=== PATIENT | male | born 1980 | race Caucasian/White ===

== ENCOUNTER 2019-06-18 12:59 | Emergency (ER) | payer OTHER ==
[~2019-06-18] VITALS: Ht 175.3 cm; Wt 95.3 kg
[2019-06-18] MEDS ORDERED: IOPAMIDOL 370 MG/ML 200 ML INFUS..BTL INJ ONE (13:00)
--- OUTSIDE RECORDS SUMMARY | 2019-06-18 13:03 | XMS REPORT ---
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 Allergies, Adverse Reactions, Alerts Allergy Name Allergy Type Status Severity Reaction(s) Onset Date Inactive Date Treating Clinician Comments No Known Allergies DA Active U 2018-10-25 00:00:00 Medications This patient has no known medications. Results Test Description Test Time Test Comments Text Results Atomic Results Result Comments GASTRIC,BIOPSY 2018-11-03 16:44:00 RUN DATE: 11/03/18 [facility] PAGE 1 RUN TIME: 1644 Specimen Inquiry RUN USER: INTERFACE PATIENT: HANNAH TRAYLOR LOC: [facility] U #: [id number] AGE/SX: 38/M ROOM: RE11/02/18[facility]: Redd Bridges MD : 79 BED: DIS: STATUS: [facility] TLOC: SPEC #: [id number] RECD: 11/02/18 STATUS: AISSATOURoberto JOSEF #: [id number] DHEERAJ: 11/02/18-[address] [facility] [address]: Redd Bridges MD ENTERED: 11/02/18 SP TYPE: GASTRIC BX OT DR: Lila Garner MDORDERED: GROSS COPIES TO: Lila Garner MD [address] [facility] [address] [place], [place] [id number] Redd Bridges MD [address] [address] PROCEDURES: GROSS (11/03/18-1336) TISSUES: 1. ANTRUM - BX 2. BODY BIOPSY OF STOMACH 3. ESOPHAGUS, NOS - BX CLINICAL HISTORY COLLECTION DATE: 11/02/18 [facility] FINAL DIAGNOSIS Gastric antrum, biopsy: GASTRIC MUCOSA WITH NO SIGNIFICANT PATHOLOGIC ALTERATION NEGATIVE FOR HELICOBACTER ORGANISMS Gastric body, biopsy FRAGMENTS OF GASTRIC MUCOSA WITH NO SIGNIFICANT PATHOLOGIC ALTERATION Esophagus, biopsy: TANGENTIALLY SECTIONED SQUAMOUS MUCOSA WITH MILDLY INCREASED INTRAEPITHELIAL LYMPHOCYTES NO INCREASED NUMBER OF INTRAEPITHELIAL EOSINOPHILS NO GLANDULAR EPITHELIUM PRESENT NEGATIVE FOR MALIGNANCY CONTINUED ON NEXT PAGE --- RUN DATE: 11/03/18 [facility] PAGE 2 RUN TIME: 1644 Specimen Inquiry RUN USER: INTERFACE SPEC #: [id number] PATIENT: HANNAH TRAYLOR #[id number] (Continued) --------- FINAL DIAGNOSIS (Continued) RRB/sm D [id number], [id number] MACROSCOPIC The first specimen is received in formalin, labeled with the patient's name, identified as "antrum biopsy", and consists of two zarco biopsy fragments measuring 0.25 and 0.3 cm, submitted as (1). An H E and a giemsa stain will be prepared. The second specimen is received in formalin, labeled with the patient's name, identified as "body of stomach biopsy", and consists of two zarco biopsy fragments measuring 0.3 cm each, submitted as (2). The third specimen is received in formalin, labeled with the patient's name, identified as "esophagus biopsy", and consists of a white fragment of tissue measuring up to 0.25 cm, submitted as (3). GROSS PERFORMED AT [facility] [address] [place] [id number] (p)[phone] MICROSCOPIC All of the stains, including any controls performed, stain appropriately. MICROSCOPIC PERFORMED AT [facility] [address] [facility], [place] [address] (p)[phone] PERFORMING SITE Diagnosis performed at: [facility] [address] [facility], [place] [address] Signed SIGNATURE ON FILE Ryan Moreno MD 11/03/18 1644 END OF REPORT
[2019-06-18] MEDS ORDERED: SODIUM CHLORIDE 0.9% 1000ML 1,000 ML IV STA ×2 (13:17→13:23)
[2019-06-18] MEDS ORDERED: MAGNESIUM/ALUMINUM/SIMETHICONE 30 ML UDC PO ONE (13:30)
[2019-06-18] MEDS ORDERED: LIDOCAINE VISC 2% SOLN 15 ML UDC PO ONE (13:30)
[2019-06-18 13:56] LABS: BASOPHILS # (AUTO) 0.1 (0.0-0.1); BASOPHILS % 0.7 % (0.0-1.0); EOSINOPHILS # (AUTO) 0.3 (0.0-0.4); EOSINOPHILS % 4.1 % (0.0-6.0); HEMATOCRIT 49.6 % (38.2-49.6); HEMOGLOBIN 16.6 g/dL (14.0-18.0); LYMPHOCYTES # (AUTO) 1.6 (1.0-3.2); LYMPHOCYTES % 23.5 % (18.0-39.1); MEAN CORPUSCULAR HGB CONC 33.5 g/dL (31-35); MEAN CORPUSCULAR VOLUME 86.7 fL (81-99); MONOCYTES # (AUTO) 0.4 (0.2-0.8); MONOCYTES % 6.5 % (4.4-11.3); NEUTROPHILS # (AUTO) 4.4 (2.1-6.9); NEUTROPHILS % 65.1 % (38.7-80.0); PLATELET COUNT 215 x10e3/uL (140-360); RED BLOOD COUNT 5.72 x10e6/uL (4.3-5.7); RED CELL DISTRIBUTION WIDTH 12.4 % (11.7-14.4)
[2019-06-18] MEDS ORDERED: PANTOPRAZOLE 40 MG 10ML VIAL IV STA (13:56)
[2019-06-18] MEDS ORDERED: ONDANSETRON HCL INJ 2MG/ML 2ML 2 MG/ML VIAL IV STA (13:56)
[2019-06-18 14:19] LABS: ALANINE AMINOTRANSFERASE 18 IU/L (0-55); ALBUMIN 4.3 g/dL (3.5-5.0); ALBUMIN/GLOBULIN RATIO 1.2 (0.8-2.0); ALKALINE PHOSPHATASE 98 IU/L (40-150); AMYLASE 168 U/L (25-125); ANION GAP 13.6 mmol/L (8-16); BLOOD UREA NITROGEN 12 mg/dL (7-26); BUN/CREATININE RATIO 11 (6-25); CALCIUM 9.5 mg/dL (8.4-10.2); CARBON DIOXIDE 28 mmol/L (22-29); CHLORIDE 98 mmol/L (98-107); CREATINE KINASE 42 IU/L (30-200); CREATININE, SERUM 1.09 mg/dL (0.72-1.25); EST GLOMERULAR FILTRATION RATE > 60 ML/MIN (60-); GLUCOSE 101 mg/dL (74-118); LIPASE 88 U/L (8-78); POTASSIUM 3.6 mmol/L (3.5-5.1); SODIUM 136 mmol/L (136-145)
[2019-06-18] MEDS ORDERED: DONNATAL/LIDOCAINE/MAALOX 30 ML SUSP PO ONE (14:30)
--- NOTE | 2019-06-18 14:36 | Diagnostic Imaging Report ---
EXAM: Right upper quadrant abdominal ultrasound INDICATION: Right upper quadrant pain COMPARISON: None. TECHNIQUE: Transverse and longitudinal images of the right upper quadrant abdomen were obtained FINDINGS: Liver: Size: 15.2 cm in the right midclavicular line, normal Appearance: Increased echogenicity, smooth contour Mass: No focal masses Gallbladder: Dependent sludge in the gallbladder. No gallbladder distension, pericholecystic fluid, wall thickening, stone, or reported sonographic Pickering's sign. Gallbladder wall measures 3 mm. Bile Ducts: Intrahepatic Ducts: No dilatation Extrahepatic Ducts: Common bile duct measures 3 mm Pancreas: Visualized portions of the pancreatic head, neck and proximal body are normal. Kidney: The right kidney measures 10.1 cm without evidence of hydronephrosis or stone. Vessels: Aorta: Visualized portions are normal Inferior Vena Cava: Visualized portions are normal Main Portal Vein: 1.0 cm, normal size with hepatopetal flow. Free Fluid: No ascites or pleural effusion IMPRESSION: Sludge in the gallbladder. No cholelithiasis or sonographic evidence of cholecystitis. Hepatic steatosis. Signed by: Teresa Brandon MD on 06/18/2019 2:33 PM
[2019-06-18] MEDS ORDERED: BELLADONNA ALK/PHENOBARBITAL 5 ML UDC PO SCH (15:00)
--- NOTE | 2019-06-18 15:09 | Diagnostic Imaging Report ---
EXAM: CT Abdomen and Pelvis WITH intravenous contrast INDICATION: Abdominal pain COMPARISON: Right upper quadrant ultrasound of 06/18/2019 TECHNIQUE: Abdomen and pelvis were scanned utilizing a multidetector helical scanner from the lung base to the pubic symphysis after administration of IV contrast. Coronal and sagittal reformations were obtained. Routine protocol was performed. Scan was performed during portal venous phase. IV CONTRAST: 100mL of Isovue 370 ORAL CONTRAST: Water RADIATION DOSE: Total DLP: 642 mGy*cm Dose modulation, iterative reconstruction, and/or weight based adjustment of the mA/kV was utilized to reduce the radiation dose to as low as reasonably achievable. FINDINGS: LOWER THORAX: Normal. HEPATOBILIARY: Diffuse hepatic steatosis. No focal liver lesion. No biliary ductal dilation. Gallbladder sludge seen on the ultrasound of earlier the same day is beyond the resolution of CT. SPLEEN: No splenomegaly. PANCREAS: No focal masses or ductal dilatation. ADRENALS: No adrenal nodules. KIDNEYS/URETERS: No hydronephrosis, stones, or solid mass lesions. PELVIC ORGANS/BLADDER: Unremarkable. PERITONEUM / RETROPERITONEUM: No free air or fluid. LYMPH NODES: No lymphadenopathy. VESSELS: Minimal atherosclerotic calcifications. GI TRACT: No abnormal bowel thickening. No bowel obstruction. Normal appendix. BONES AND SOFT TISSUES: No acute osseous injury. No suspicious lytic or blastic lesions. IMPRESSION: No acute findings in the abdomen or pelvis. Diffuse hepatic steatosis. Gallbladder sludge is better appreciated on the ultrasound of earlier the same day. Signed by: Teresa Brandon MD on 06/18/2019 3:05 PM
== END 2019-06-18 15:46 | disposition home or self-care (01) ==
LOC: EDBD 12:59 → ER 12:59
DX: R10.13 Epigastric pain (principal); R11.2 Nausea with vomiting, unspecified; K80.50 Calculus of bile duct without cholangitis or cholecystitis without obstruction; K21.9 Gastro-esophageal reflux disease without esophagitis
CPT/HCPCS: 36415; 74177; 76705; 80053; 82150; 82550; 82553; 83690; 84484; 85025; 93005; 99284; C9113; J2405; J7030; Q9967